=== PATIENT | male | born 1965 | race Caucasian/White ===

== ENCOUNTER 2019-06-27 07:04 | Day surgery (SDC) | payer OTHER ==
[2019-06-27 07:21] VITALS: BMI 27.2
[2019-06-27] MEDS ORDERED: MIDAZOLAM HCL 2 MG/2 ML SINGLE DOSE VIAL ONE ×2 (07:35→08:44)
[2019-06-27] MEDS ORDERED: ceFAZolin SODIUM 1 GM VIAL IVPB ONE ×2 (08:19→08:24)
[2019-06-27] MEDS ORDERED: oxyCODONE HCL 5 MG TABLET PO PRN (08:26)
--- NOTE | 2019-06-27 08:27 | OP ---
Operative Note - Note: Operative Date: 06/27/19 Pre-Operative Diagnosis: LK stone Operation: ESWL Post-Operative Diagnosis: Same as Pre-op Anesthesia: General Operative Report Dictated: Yes
[2019-06-27] MEDS ORDERED: DEXTROSE 5%-0.45% SALINE 1,000 ML IV SCH (08:30)
[2019-06-27 13:12] VITALS: BP 140/80; PULSE 70; TEMP 98
--- NOTE | 2019-06-27 18:08 | OP ---
DATE OF OPERATION: 06/27/2019 PREOPERATIVE DIAGNOSIS: Left kidney stone. POSTOPERATIVE DIAGNOSIS: Left kidney stone. PROCEDURE: Extracorporeal shock-wave lithotripsy. SURGEON: Rio De La Rosa MD INDICATIONS: Patient is a 53-year-old male with a 9-mm left lower pole stone who after reviewing treatment options elected to undergo ESWL. DESCRIPTION OF PROCEDURE: After informed consent was obtained, patient was taken to OR, placed supine on the lithotripsy table. Under active ultrasound, the 9-mm left lower pole stone was visualized. Under continuous ultrasound, 2500 shocks were delivered to the stone. Continuous ultrasound was used to make sure that the stone was in the treatment coordinates within the entire treatment period. After 2500 shocks were delivered, treatment was terminated. Patient awoken from anesthesia and transferred to recovery room in stable condition. There were no complications. There was no blood loss. Patient was given 1 g of Ancef prior to procedure. RIO DE LA ROSA M.D. [id number]
== END 2019-06-27 13:13 | disposition home or self-care (01) ==
LOC: JASU-SURG 07:04
PROVIDERS: ATTEND Urology
PROC: 0TF4XZZ Fragmentation in Left Kidney Pelvis, External Approach (ICD-10-PCS; principal; 2019-06-27 08:15)
DX: N20.0 Calculus of kidney (principal)

== ENCOUNTER 2019-12-31 12:24 | Emergency (ER) | payer OTHER ==
[2019-12-31] MEDS ORDERED: SODIUM CHLORIDE 1,000 ML IV SCH (12:45)
--- NOTE | 2019-12-31 12:46 | PDOC ---
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 States he got up to have breakfast and felt fine, states he get up after breakfast and felt off balance and fell twice. States his legs felt off balance. States he fell hitting his R shoulder and R hip, but denies pain. Denies head injury or loc. Pt denies neck or back pain. No cp/sob. No abd pain. No n/v/d. No dysuria. No other complaints. tPA Exclusion checklist 3-4.5h - Time Elapsed Date last known well: 12/31/19 Time last known well: 12:48 Elaspsed time: Day(s) and 3 Hour(s) and 2 Minutes - Thrombolytic Therapy Candidate Is patient eligible for thrombolytic therapy: No - Ineligibility reason(s) Reasons No tPA given: See reason(s) noted above (rapid resolution of symptoms) NIH Stroke Scale - Last Known Well Date/Time & Onset Date Last Known Well: 12/31/19 Time Last Known Well: 12:48 - Initial Evaluation Level of consciousness: Alert Ask patient the month and their age: Answers both correctly Ask patient to open & close eyes; make fist and let go: Obeys both correctly Best gaze (horizontal eye movement): Normal Visual field testing: No visual field loss Facial paresis (Show teeth/raise eyebrows/close eyes tight): Normal symmetrical movement Motor Function: Left Arm: Normal Motor Function: Right Arm: Normal (extends arm 90 (or 45) degrees for 10 seconds without drift Motor Function: Left Leg: Normal (extends leg 30 degrees for 5 seconds without drift) Motor Function: Right Leg: Normal (extends leg 30 degrees for 5 seconds without drift) Limb Ataxia: No ataxia Sensory(Use pinprick test arms,legs,trunk,face/side to side): Normal Best language (Describe picture, name items, read sentences): No Aphasia Dysarthria (read several words): Normal articulation Extinction and Inattention: No abnormality - Total Score NIH Stroke Scale Score: 0 Past History - Medical History Allergies/Adverse Reactions: Allergies Allergy/AdvReac Type Severity Reaction Status Date / Time No Known Allergies Allergy Verified 12/31/19 12:29 Home Medications: Ambulatory Orders Aripiprazole [Abilify] 30 mg PO DAILY 12/12/18 Cholecalciferol (Vitamin D3) [Vitamin D3] 2,000 units PO DAILY 12/12/18 Citalopram Hydrobromide [Celexa -] 20 mg PO DAILY 12/12/18 Gabapentin [Neurontin] 300 mg PO BID 12/12/18 Lamotrigine [Lamictal] 200 mg PO HS 12/12/18 Metoprolol Succinate [Toprol Xl] 25 mg PO DAILY 12/12/18 Pantoprazole Sodium [Protonix -] 40 mg PO DAILY 12/12/18 Quetiapine Fumarate [Seroquel] 350 mg PO HS 12/12/18 Lipase/Protease/Amylase [Creon Dr 36,000 Units Capsule] 1 each PO AC 06/27/19 Venlafaxine HCl ER [Effexor Xr -] 300 mg PO DAILY 06/27/19 Ascorbate Calcium [Vitamin C] 500 mg PO BID 10/24/19 Multivitamins [Multivit ([facility] Formulary)] 1 tab PO DAILY 10/24/19 Testosterone Cypionate 0.5 ml IM WEEKLY 10/24/19 Nicotine [Nicotine Patch 21 mg/24 hr] 0 mg TP DAILY 10/25/19 Aspirin [ASA -] 81 mg PO DAILY 12/31/19 Atorvastatin Ca [Lipitor] 80 mg PO DAILY 12/31/19 Tamsulosin HCl [Flomax] 0.4 mg PO DAILY 12/31/19 Anemia: No Asthma: No Cancer: Yes (testicular Cancer) Cardiac Disorders: No CVA: No COPD: No CHF: No Dementia: No Diabetes: No GI Disorders: Yes (acid reflux) Disorders: No HTN: Yes Hypercholesterolemia: Yes Liver Disease: No Psychiatric Problems: Yes (Schizoaffective Disorder) Seizures: No Thyroid Disease: No - Psycho-Social/Smoking History Smoking History: Current every day smoker Have you smoked in the past 12 months: Yes Number of Cigarettes Smoked Daily: 20 Information on smoking cessation initiated: Yes 'Breaking Loose' booklet given: 06/27/19 - Substance Abuse Hx (Audit-C & DAST Scrn) How often the patient has a drink containing alcohol: Never Score: In Men: 4 or > Positive; In Women: 3 or > Positive: 0 Screen Result (Pos requires Nsg. Audit-10AR): Negative In the last yr the pt used illegal drug/Rx for NonMed reason: No Score: Yes response is considered Positive: 0 Screen Result (Positive result requires Nsg. DAST-10): Negative Review of Systems - Review of Systems Able to Perform ROS?: Yes Is the patient limited Croatian proficient: No Constitutional: No: Chills, Fever HEENTM: No: Eye Pain, Blurred Vision, Throat Pain, Throat Swelling Respiratory: No: Cough, Shortness of Breath Cardiac (ROS): No: Chest Pain, Lightheadedness, Palpitations ABD/GI: No: Diarrhea, Nausea, Vomiting, Abdominal cramping : No: Burning, Dysuria Musculoskeletal: No: Back Pain, Neck Pain Integumentary: No: Rash Neurological: Yes: Ataxia. No: Headache, Numbness, Paresthesia, Tingling, Tremors, Weakness All Other Systems: Reviewed and Negative *Physical Exam - Vital Signs Last Vital Signs Temp Pulse Resp BP Pulse Ox 98.1 F 84 18 92/63 100 12/31/19 12:29 12/31/19 12:29 12/31/19 12:29 12/31/19 12:29 12/31/19 12:29 - Physical Exam General Appearance: Yes: Nourished, Appropriately Dressed. No: Apparent Distress HEENT: positive: EOMI, TARUN, Normal Voice. negative: Pharyngeal Erythema, Tonsillar Exudate, Tonsillar Erythema, Nasal Congestion Neck: positive: Supple. negative: Tender Respiratory/Chest: positive: Lungs Clear, Normal Breath Sounds. negative: Respiratory Distress Cardiovascular: positive: Regular Rhythm, Regular Rate, S1, S2. negative: Edema Gastrointestinal/Abdominal: positive: Soft. negative: Guarding, Rebound, Tenderness Musculoskeletal: positive: Normal Inspection. negative: CVA Tenderness, Vertebral Tenderness Extremity: positive: Normal Capillary Refill, Normal Inspection, Normal Range of Motion. negative: Swelling, Calf Tenderness Integumentary: positive: Normal Color, Dry, Warm Neurologic: positive: diplomatic interpreter II-XII NML intact, Fully Oriented, Alert, Normal Mood/Affect, Normal Response, Motor Strength 09/18 Heart Score/ECG Review - ECG Intrepretation Comment:: 12/31/19 15:09 sinus at 79, nl axis, nl interval, no acute st/t wave findings ED Treatment Course - LABORATORY CBC & Chemistry Diagram: 12/31/19 12:45 12/31/19 12:45 - RADIOLOGY Radiology Studies Ordered: Category Date Time Status HEAD CT (STROKE) [CT] Stat CT Scan 12/31/19 12:44 Ordered CHEST X-RAY PORTABLE* [RAD] Stat Radiology 12/31/19 12:44 Ordered Medical Decision Making - Medical Decision Making 12/31/19 13:01 a/p: 54yo male with hx of orthostatic hypotension, low T, schizoaffective disorder, hld with 2 falls today -pt states he was off balance -denies dizziness and states he felt different from his episodes of orthostatic hypotension -states he felt his legs were off balance and wouldn't work -concern for TIA causing falls - landed on R shoulder and hip, but denies pain and has FROM -will send labs, ekg, cxr, head ct -will most likely need obs for TIA workup -all symptoms resolved and pt feels at baseline now -states he had a similar episode about a month ago and was treated at [facility] for orthostatic hypotension 12/31/19 13:24 cxr clear 12/31/19 15:[address] neg 12/31/19 15:10 labs reviewed pt with poss TIA case discussed with Lexi from [facility] who accepts pt to service 12/31/19 15:[address] Orozco - states ok to have the patient follow up in the office tomorrow discussed with patient who would rather go home and follow up with neuro as an outpt Discharge - Discharge Information Problems reviewed: Yes Clinical Impression/Diagnosis: TIA (transient ischemic attack) Condition: Stable Disposition: HOME - Admission No - Follow up/Referral Referrals: Carey Bailey MD [Primary Care Provider] - Twan Orozco MD [Staff Physician] - - Patient Discharge Instructions Patient Printed Discharge Instructions: DI for Transient Ischemic Attack, How to Prevent Falls Additional Instructions: Please take all your medications as prescribed. Please call Dr. Orozco tomorrow to schedule a follow up appointment. Please return to the ER with any further concerns or complaints. - Post Discharge Activity
[2019-12-31] MEDS ORDERED: SODIUM CHLORIDE 0.9% 1000 ML INFUS.BAG IV ONE (12:47)
[2019-12-31 12:56] VITALS: TEMP 98.1; BMI 23.6
[2019-12-31 13:21] LABS: BASO % 1.1 % (0-2.0); EOS % 0.7 % (0-4.5); HEMATOCRIT 41.7 % (35.4-49); HEMOGLOBIN 13.8 GM/dl (11.7-16.9); LYMPH % 22.8 % (8-40); MCH 32.4 pg (25.7-33.7); MEAN CELL VOLUME 98.3 fl (80-96); MONO % 8.6 % (3.8-10.2); NEUT % 66.8 % (42.8-82.8); PLATELET COUNT 302 K/MM3 (134-434); RBC 4.24 M/mm3 (4.00-5.60); RDW 12.7 % (11.9-15.9); WHITE BLOOD COUNT 11.2 K/mm3 (4.0-10.8)
[2019-12-31 13:23] LABS: ACTIVATED PTT 32.5 SECONDS (25.2-36.5)
[2019-12-31 13:25] LABS: ALBUMIN 3.8 g/dl (3.4-5.0); BILIRUBIN,TOTAL 0.5 mg/dl (0.2-1); CALCIUM 9.5 mg/dl (8.5-10); CREATININE 0.8 mg/dl (0.55-1.3); MAGNESIUM 1.9 mg/dL (1.8-2.4); TOT PROT 6.5 g/dl (6.4-8.2)
[2019-12-31 13:27] LABS: INR 1.28 (0.82-1.09); PROTHROMBIN TIME (PATIENT) 14.3 SEC (10.2-13.0)
[2019-12-31 13:37] LABS: CHOLESTEROL 136 mg/dl (50-200); HDL CHOLESTEROL 48 mg/dl (40-60); LDL CHOLESTEROL (ONLY DFH) 76 mg/dl (5-100); TRIGLYCERIDES 60 mg/dl (0-150)
[2019-12-31 15:04] VITALS: BP 108/80; PULSE 68
--- NOTE | 2019-12-31 15:04 | HP ---
CHIEF COMPLAINT: s/p fall PCP:Carey Bailey MD Urology : Gato Knight MD Endo: Scooter Bernabe MD HISTORY OF PRESENT ILLNESS: This is a 53 year old male with known history of seminoma s/p single testicle resection, followed by chemotherapy, currently on testosterone injections ( hasnt been getting them due to covid), eczema, Hypertension, hyperlipidemia, renal stones, OCD and schizoaffective disorder, who was brought in to the ED after two falls today. Denies any head injury. Pt reports that when he got up after breakfast , legs weakness/ unsteady gait and and fell twice. States he fell hitting his R shoulder and R hip, but denies pain. Denies head injury or loc. Pt denies neck or back pain. No cp/sob. No abd pain. No n/v/d. No dysuria. No other complaints. Hx of falls, pt was admitted in October 2019 with s/p fall, found to have orthostatic hypotension. ER course was notable for: (1)Head CT : No acute intracranial pathology (2) CXR: No acute lung pathology (3)WBC 11.2, afebrile, Bun/ Cre ,-wnl, trop neg (4) EKG SR Recent Travel:No PAST MEDICAL HISTORY: as mentioned above PAST SURGICAL HISTORY: s/p single testicle resection Social History: Smoking:yes Alcohol: No Drugs: No Allergies No Known Allergies Allergy (Verified 12/31/19 12:29) HOME MEDICATIONS: Home Medications Medication Instructions Recorded Aripiprazole [Abilify] 30 mg PO DAILY 12/12/18 Cholecalciferol (Vitamin D3) 2,000 units PO DAILY 12/12/18 [Vitamin D3] Citalopram Hydrobromide [Celexa -] 20 mg PO DAILY 12/12/18 Gabapentin [Neurontin] 300 mg PO BID 12/12/18 Lamotrigine [Lamictal] 200 mg PO HS 12/12/18 Metoprolol Succinate [Toprol Xl] 25 mg PO DAILY 12/12/18 Pantoprazole Sodium [Protonix -] 40 mg PO DAILY 12/12/18 Quetiapine Fumarate [Seroquel] 350 mg PO HS 12/12/18 Lipase/Protease/Amylase [Creon Dr 1 each PO AC 02/11/20 36,000 Units Capsule] Venlafaxine HCl ER [Effexor Xr -] 300 mg PO DAILY 06/27/19 Ascorbate Calcium [Vitamin C] 500 mg PO BID 10/24/19 Multivitamins [Multivit ([facility] 1 tab PO DAILY 10/24/19 Formulary)] Testosterone Cypionate 0.5 ml IM WEEKLY 10/24/19 Nicotine [Nicotine Patch 21 mg/24 0 mg TP DAILY 10/25/19 hr] Aspirin [ASA -] 81 mg PO DAILY 12/31/19 Atorvastatin Ca [Lipitor] 80 mg PO DAILY 12/31/19 Tamsulosin HCl [Flomax] 0.4 mg PO DAILY 12/31/19 REVIEW OF SYSTEMS CONSTITUTIONAL: Absent: fever, chills, diaphoresis, generalized weakness, malaise, loss of appetite, weight change HEENT: Absent: rhinorrhea, nasal congestion, throat pain, throat swelling, difficulty swallowing, mouth swelling, ear pain, eye pain, visual changes CARDIOVASCULAR: Absent: chest pain, syncope, palpitations, irregular heart rate, lighthea dedness, peripheral edema RESPIRATORY: Absent: cough, shortness of breath, dyspnea with exertion, orthopnea, wheezing, stridor, hemoptysis GASTROINTESTINAL: Absent: abdominal pain, abdominal distension, nausea, vomiting, diarrhea, constipation, melena, hematochezia GENITOURINARY: Absent: dysuria, frequency, urgency, hesitancy, hematuria, flank pain, genital pain MUSCULOSKELETAL: Absent: myalgia, arthralgia, joint swelling, back pain, neck pain SKIN: Absent: rash, itching, pallor HEMATOLOGIC/IMMUNOLOGIC: Absent: easy bleeding, easy bruising, lymphadenopathy, frequent infections ENDOCRINE: Absent: unexplained weight gain, unexplained weight loss, heat intolerance, cold intolerance NEUROLOGIC: Absent: headache, focal weakness or paresthesias, dizziness, unsteady gait, seizure, mental status changes, bladder or bowel incontinence PSYCHIATRIC: Absent: anxiety, depression, suicidal or homicidal ideation, hallucinations. PHYSICAL EXAMINATION Vital Signs - 24 hr 12/31/19 12/31/19 12/31/19 12:29 12:45 13:07 Temperature 98.1 F Pulse Rate 84 Pulse Rate [ Right side Sitting] Pulse Rate [ Right side Standing] Pulse Rate [ 71 Right side Supine] Respiratory 18 Rate Blood Pressure 92/63 Blood Pressure [Right side Sitting] Blood Pressure [Right side Standing] Blood Pressure 97/64 [Right side Supine] O2 Sat by Pulse 100 98 Oximetry (%) 12/31/19 12/31/19 13:12 13:17 Temperature Pulse Rate Pulse Rate [ 73 Right side Sitting] Pulse Rate [ 86 Right side Standing] Pulse Rate [ Right side Supine] Respiratory Rate Blood Pressure Blood Pressure 104/74 [Right side Sitting] Blood Pressure 101/76 [Right side Standing] Blood Pressure [Right side Supine] O2 Sat by Pulse Oximetry (%) GENERAL: Awake, alert, and fully oriented, in no acute distress. HEAD: Normal with no signs of trauma. EYES: Pupils equal, round and reactive to light, extraocular movements intact, sclera anicteric, conjunctiva clear. No lid lag. EARS, NOSE, THROAT: Ears normal, nares patent, oropharynx clear without exudates. Moist mucous membranes. NECK: Normal range of motion, supple without lymphadenopathy, JVD, or masses. LUNGS: Breath sounds equal, clear to auscultation bilaterally. No wheezes, and no crackles. No accessory muscle use. HEART: Regular rate and rhythm, normal S1 and S2 without murmur, rub or gallop. ABDOMEN: Soft, nontender, not distended, normoactive bowel sounds, no guarding, no rebound, no masses. No hepatomegaly or splenomegaly. MUSCULOSKELETAL: Normal range of motion at all joints. No bony deformities or tenderness. No CVA tenderness. UPPER EXTREMITIES: 2+ pulses, warm, well-perfused. No cyanosis. No clubbing. No peripheral edema. LOWER EXTREMITIES: 2+ pulses, warm, well-perfused. No calf tenderness. No peripheral edema. NEUROLOGICAL: Cranial nerves II-XII intact. Normal speech. Normal gait. PSYCHIATRIC: Cooperative. Good eye contact. Appropriate mood and affect. SKIN: Warm, dry, normal turgor, no rashes or lesions noted, normal capillary refill. Laboratory Results - last 24 hr 12/31/19 12/31/19 12/31/19 12:45 12:45 12:45 WBC 11.2 H RBC 4.24 Hgb 13.8 Hct 41.7 MCV 98.3 H MCH 32.4 MCHC 33.0 RDW 12.7 Plt Count 302 MPV 8.0 Absolute Neuts (auto) 7.4 Neutrophils % 66.8 Lymphocytes % 22.8 Monocytes % 8.6 Eosinophils % 0.7 Basophils % 1.1 PT with INR 14.3 H INR 1.28 H PTT (Actin FS) 32.5 Sodium 138 Potassium 4.0 Chloride 101 Carbon Dioxide 26 Anion Gap 11 BUN 16.0 Creatinine 0.8 Est GFR (CKD-EPI)AfAm 117.38 Est GFR (CKD-EPI)NonAf 101.27 Random Glucose 91 Calcium 9.5 Magnesium 1.9 Total Bilirubin 0.5 AST 19 ALT 20 Alkaline Phosphatase 53 Creatine Kinase 221 Creatine Kinase Index 0.9 CK-MB (CK-2) 2.1 Troponin I Total Protein 6.5 Albumin 3.8 Triglycerides Cholesterol Total LDL Cholesterol HDL Cholesterol 12/31/19 12/31/19 12:48 12:48 WBC RBC Hgb Hct MCV MCH MCHC RDW Plt Count MPV Absolute Neuts (auto) Neutrophils % Lymphocytes % Monocytes % Eosinophils % Basophils % PT with INR INR PTT (Actin FS) Sodium Potassium Chloride Carbon Dioxide Anion Gap BUN Creatinine Est GFR (CKD-EPI)AfAm Est GFR (CKD-EPI)NonAf Random Glucose Calcium Magnesium Total Bilirubin AST ALT Alkaline Phosphatase Creatine Kinase Creatine Kinase Index CK-MB (CK-2) Troponin I < 0.03 Total Protein Albumin Triglycerides 60 Cholesterol 136 Total LDL Cholesterol 76 HDL Cholesterol 48 ASSESSMENT/PLAN: 53 year old male multiple medical problems , presents with s/p fall. *s/p fall , ?secondary to lower extremity/ generalized weakness - Head CT: No acute pathology - CXR: No acute pathology - Tele monitoring - will check TFT's, B12 and Vit D - will check orthostatic vitals - PT eval - UA ordered -non focal neuro exam - gentle hydration * Mild leukocytosis - will check UA - CXR: No acute lung pathology - * HTN - will cont on BB * HDL - on Statin *Schizoaffective disorder- stable Continue home medications *History of seminoma with testosterone deficiency Out pt urology f/u Dr. Hernandez - on Testosterone patch weekly *DVT ppx: Lovenox 40 daily * F/E/N: Heraryt Healthy Diet Replace electrolyte as needed Family Medical History Family History: As Documented Family Hx Cancer: Mother ( breast cancer, at age 56 ) Family Hx Coronary Artery Disease: Father (Father of a heart attack at 75 years of age) Visit type - Emergency Visit Emergency Visit: Yes Care time: The patient presented to the Emergency Department on the above date and was hospitalized for further evaluation of their emergent condition. - New Patient This patient is new to me today: Yes Date on this admission: 12/31/19 - Critical Care Critical Care patient: No
[2019-12-31] MEDS ORDERED: ENOXAPARIN NA (PORCINE) 40 MG/0.4 ML DISP.SYRIN SQ SCH (15:15)
[2019-12-31] MEDS ORDERED: ASPIRIN 81 MG CHEWABLE TABLETS PO ONE (15:16)
[2019-12-31] MEDS ORDERED: ASPIRIN 81 MG CHEWABLE TABLETS ONE (15:58)
[2019-12-31] MEDS ORDERED: LIPASE/PROTEASE/AMYLASE 36,000 UNIT CAPSULE PO SCH (16:30)
--- NOTE | 2019-12-31 18:51 | EKG ---
Test Reason : Blood Pressure : / mmHG Vent. Rate : 079 BPM Atrial Rate : 079 BPM P-R Int : 170 ms QRS Dur : 092 ms QT Int : 372 ms P-R-T Axes : 068 056 068 degrees QTc Int : 426 ms NORMAL SINUS RHYTHM NORMAL ECG WHEN COMPARED WITH ECG OF 24-OCT-2019 11:26, NO SIGNIFICANT CHANGE WAS FOUND Confirmed by MD CANELO, ITALIA ([id number]) on 12/31/2019 6:51:25 PM Referred By: LI WILSON Confirmed By:ITALIA LEMOS MD
[2019-12-31] MEDS ORDERED: QUEtiapine FUMARATE 100 MG TABLET (FP) PO SCH (22:00)
[2019-12-31] MEDS ORDERED: ATORVASTATIN CA 80 MG TABLET (FP) PO SCH (22:00)
[2019-12-31] MEDS ORDERED: GABAPENTIN 300 MG CAPSULE PO SCH (22:00)
[2019-12-31] MEDS ORDERED: ASCORBIC ACID 500 MG TABLET (FP) PO SCH (22:00)
[2020-01-01] MEDS ORDERED: TAMSULOSIN HCL 0.4 MG CAP PO SCH (08:30)
[2020-01-01] MEDS ORDERED: metoPROLOL SUCCINATE 25 MG TAB.SR.24H (FP) PO SCH (10:00)
[2020-01-01] MEDS ORDERED: ARIPiprazole 30 MG TABLET PO SCH (10:00)
[2020-01-01] MEDS ORDERED: VENLAFAXINE HCL 150 MG E.R. CAPSULE PO SCH (10:00)
[2020-01-01] MEDS ORDERED: CHOLECALCIFEROL (VIT D3) 1,000 UNIT (25 MCG) TABLET PO SCH (10:00)
[2020-01-01] MEDS ORDERED: PANTOPRAZOLE 20 MG TABLET PO SCH (10:00)
[2020-01-01] MEDS ORDERED: ASPIRIN 81 MG CHEWABLE TABLETS PO SCH (10:00)
[2020-01-01] MEDS ORDERED: CITALOPRAM HYDROBROMIDE 20 MG TABLET PO SCH (10:00)
[2020-01-01] MEDS ORDERED: MULTIVITAMINS (DAILY MVI) TABLET (FP) PO SCH (10:00)
== END 2019-12-31 16:25 | disposition home or self-care (01) ==
LOC: FER 12:24
DX: G45.9 Transient cerebral ischemic attack, unspecified (principal)
CPT/HCPCS: 36415; 70450-TC; 71045-TC-FY; 80053; 80061; 81003; 81015; 82306; 82550; 82553; 82607; 83735; 84443; 84484; 85025; 85610; 85730; 86850; 86900; 86901; 93005; 99285-25; U0003